=== PATIENT | male | born 1955 | race Caucasian/White ===

== ENCOUNTER 2023-07-27 09:15 | Outpatient (RCR) | payer MEDICARE, OTHER, SELFPAY | END 2023-11-24 23:59 | disposition home or self-care (01) | PROVIDERS: PCP Family Medicine; Visit Provider Family Medicine | DX: M26.623 Arthralgia of bilateral temporomandibular joint (principal); Z51.89 Encounter for other specified aftercare | CPT/HCPCS: 97110; 97140; 97161; 97535 ==

== ENCOUNTER 2024-08-12 11:46 | Outpatient (CLI) | payer MEDICARE, BC, SELFPAY | END 2024-08-12 11:47 | disposition home or self-care (01) | PROVIDERS: PCP Family Medicine; Visit Provider Nurse Practitioner Family | DX: M25.532 Pain in left wrist (principal) | CPT/HCPCS: 84550; 85651; 86140 ==

== ENCOUNTER 2024-12-23 12:23 | Outpatient (CLI) | payer MEDICARE, BC, SELFPAY | END 2024-12-23 12:24 | disposition home or self-care (01) | LOC: NFLDUCREF 12:24 | PROVIDERS: PCP Family Medicine; Visit Provider Physician Assistant | DX: R35.0 Frequency of micturition (principal); R30.0 Dysuria; R50.9 Fever, unspecified | CPT/HCPCS: 87086 ==

== ENCOUNTER 2025-02-20 05:26 | Emergency (ER) | payer MEDICARE, BC, SELFPAY ==
[2025-02-20] VITALS (7 sets, daily range): BP systolic 158–178; BP diastolic 87–101; PULSE 60–63; RESP 16–18; TEMP 36.1; O2SAT 94–97; BMI 21.7
--- OUTSIDE RECORDS SUMMARY | 2025-02-20 05:28 | XMS_ITS | Data Portability ---
Author Organization [facility], _Jette Address [address] [place] [address] Care Team Providers Care Hand Washer Name Role Phone BELKYS ORTIZ Primary Care Provider Assessment No assessment recorded. Plan of Treatment Reminders Order Date Submit Date Provider Last Modified By Organization Details Last Modified Time Details Appointments None recorded. Lab urinalysis , dipstick 2022 Roxane cynthiachandler [facility], [address], [address], [place], [address], 15:18:01 Referral None recorded. Procedures None recorded. Surgeries None recorded. Imaging None recorded. Medication Orders None recorded. Patient TargetsNo targets recorded. Patient InstructionsNo instructions recorded. Reason for Referral None Reported. Results Created Date Observation Date Name Description Value Unit Range Abnormal Flag Note LastModifiedBy Organization Detail LastModifiedTime 10/14/1910/14/2022 urina lysis , dipst ick Color-Status Yellow Not Available [facility] [address], [place], [address], 10/14/2022 15:13:37 10/14/1910/14/2022 urina lysis , dipst ick Clarity-Stat us Clear Not Available [facility] [address], [place], [address], 10/14/2022 15:13:37 10/14/19 23 10/14/2022 urina lysis , dipst ick pH-Status 5.5 Not Available [facility] [address], [place], [address], 10/14/2022 15:13:37 Result Notes None recorded. Problems Name Problem SNOMED Code Status Onset Date Resolution Date Notes Provider Name and Address Organization Details Recorded Time Overactive urinary bladder 621494685 Active 2022 Allen Ny MD [address] [place] [address],[address], [phone], [facility] 3 17:35:11 Primary erectile dysfunction 736262939 Active 2022 Allen Ny MD [address] [place] [address],[facility] [address], [place], [address], [facility] 3 17:35:53 Problem Notes None recorded. Procedures Surgical History Date Name Laterality Status Provider Name and Address Organization Details Recorded Time 3 Bladder Scan completed [facility] 10/14/2022 15:18:38 2 Colonoscopy completed [facility] 10/14/2022 15:13:04 Imaging Results None recorded. Procedure Notes None recorded. Medical Equipment None Reported. Allergies No known drug allergies Medications Name Sig Start Date Stop Date Status Note LastModified by Organization Details LastModified Time atorvastati n 40 mg tablet TAKE 1 TABLET BY MOUTH AT BEDTIME active Not Available Not Available No t Available clonazepam 0.5 mg tablet TAKE 1 TABLET (0.5 MG) BY MOUTH ONCE DAILY IF NEEDED FOR ANXIETY.. [facility] 10/14 completed Not Available Not Available Not Available triamcinolo ne acetonide 0.1 % topical cream APPLY TO FLAKY AREAS ON FACE & NECK TWICE DAILY UP TO 2 WKS AT A TIME. REPEAT NEEDED FOR FLARES. 10/14 completed Not Available Not Available Not Available simvastatin 40 mg tablet TAKE 1 TABLET (40 MG) BY MOUTH ONCE DAILY WITH EVENING MEAL. 10/14 completed Not Available Not Available Not Available lisinopril 10 mg tablet TAKE 1 TABLET BY MOUTH EVERY DAY active Not Available Not Available No t Available mupirocin 2 % topical ointment APPLY TO AFFECTED AREA 2-3X DAILY 10/14 completed Not Available Not Available Not Available paroxetine 40 mg tablet TAKE 1.5 TABLETS (60 MG) BY MOUTH AT BEDTIME. 2022 active Not Available Not Available Not Avai lable tadalafil 20 mg tablet TAKE 1/2 TABLET BY MOUTH ONCE DAILY IF NEEDED FOR ED. active Not Available Not Available No t Available aspirin active Not Available Not Avail able Not Available GaviLyte-G 236 gram-22.74 gram-6.74 gram-5.86 gram oral solution DRINK 3 LITERS THE DAY BEFORE THE PROCEDURE AND 1 LITER 6 HOURS PRIOR TO PROCEDURE . 10/14 completed Not Available Not Available Not Available Vitals Date Recorded Body height Body mass index (BMI) Body weight Provider Name and Address Organization Details Last Updated DateTime 10/14/2022 193.04 cm 20.1 kg/m2 93427.74 g [facility] 10/14/2022 15:11:03 Social History Question Answer Notes LastModified by Wikid[employer] Details LastModified Time Tobacco Smoking Status [facility]14[facility]22 15:12:51 What Was The Date Of Your Most Recent Tobacco Screening? 10/14/2022 Information not available 10/14/2022 Has Tobacco Cessation Counseling Been Provided? Yes Information not available 10/14/2022 On What Date Was Tobacco Cessation Counseling Provided? 10/14/2022 Information not available 10/14/2022 Sex: Unknown Functional Status Question Answer Note LastModified by [employer] Masher Details LastModified Time Do you or have you ever used any other forms of tobacco or nicotine? Yes Information not available 10/14/2022 Do you or have you ever used smokeless tobacco? Currently chews tobacco Information not available 10/14/2022 Do you or have you ever used e-cigarettes or vape? Never used electronic cigarettes Information not available 10/14/2022 Mental Status None recorded. Family History Relationship Description Onset Age of this Age Resolved Age Notes LastModified by Organization Details LastModified Time Father Family history of cancer of colon kneubert Not available 2022 15:11:36 Maternal Uncle Family history of malignant neoplasm of prostate kneubert Not available 2022 15:11:50 Maternal Uncle Malignant melanoma kneubert Not available 2022 15:12:17 Unspecified Relation Family history of malignant neoplasm of prostate cousin on mother 's side kneubert Not available 10/14/2022 15:12:05 Sister Malignant melanoma kneubert Not available 2022 15:12:17 Medical History Condition Response Sexually Transmitted Infection N Diabetes Y Other N Bleeding Disorder N High Blood Pressure N Kidney Stones N High Cholesterol Y GERD/Acid Reflux N Heart Disease N Cancer Y Lung Disease N Depression N Immunizations Vaccine Type Date Status Note Provider Nam e and Address Organization Details Recorded Time Influenza, high-dose, quadrivalent, PF 05/17/2020 completed Nohemy chapin [facility] 07/02/2023 09:50:10 Influenza, high-dose, quadrivalent, PF 08/05/2021 do chapin [facility] 07/02/2023 09:50:10 COVID-19, mRNA, LNP-S, PF, 100 mcg/0.5mL dose or 50 mcg/0.25mL dose [facility]25[facility]2020 [facility]/02/2023 09:50:10 COVID-19, mRNA, LNP-S, PF, 100 mcg/0.5mL dose or 50 mcg/0.25mL dose 11/22/2020 do chapin [facility] 07/02/2023 09:50:10 COVID-19, mRNA, LNP-S, PF, 100 mcg/0.5mL dose or 50 mcg/0.25mL dose 03/11/2022 do chapin [facility] 07/02/2023 09:50:10 COVID-19, mRNA, LNP-S, PF, 100 mcg/0.5mL dose or 50 mcg/0.25mL dose 08/05/2021 do chapin [facility] 07/02/2023 09:50:10 Past Encounters Encounter ID Performer Location Encounter Start Date Encounter Closed Date Diagnosis/Indication Diagnosis SNOMED-CT Code Diagnosis ICD10 Code Diagnosis Note [id number] Allen Ny MD [facility] [address] [place] [address] 10/14/2022 14:48:41 10/16/2022 16:03:26 Incontinence 44870184 R32 Overactive urinary bladder 093725550 N32.81 - Overactive bladder with urge incontinen ce, suspect due to heavy caffeine intake-Adv ised that he significan tly reduce his caffeine intake. We could try medication s for overactive bladder if he does not see improvemen t-Screenin g PSA sent today. Primary er ectile dysfunction 343534402 N52.9 - Continue tadalafil 10 to 20 mg as directed Health Concerns Section Related Observation LastModified by Organization Detai ls LastModified Time None Recorded Concern Status LastModified by Organization Details LastModified Time None Recorded Advance Directives Directive None Recorded Payers Insurance Date Sequence Insurance Name Policy Number Policy Oseguera Covered Member ID Oseguera Member ID Guarantor Name 10/14/2022 1 [place] [employer] Beto Walsh [id number] Beto Walsh 10/14/2022 2 [facility] (MEDICARE SUPPLEMENT) Beto Walsh [id number] Beto Walsh Notes Date Note Type Note Provider Name and Address Organization Details Recorded Time 10/14/2022 text/html New patient referred for urinary concerns and erectile dysfunction. I reviewed the most recent clinic notes from Dr. Mcneal dated 07/29/2022. He reports chronic history of urinary urgency and frequency with 1 pad per day urge incontinence. Symptoms are worse with drinking alcohol. He reports heavy caffeine intake with 3 cups of coffee in the morning and 3 to 4 cans of Pepsi during the day. He saw a urologist in [place] about 4 years ago who started Flomax. The medication has caused dizziness and he has not seen significant symptom improvement. He also has chronic erectile dysfunction and has used tadalafil 10 to 20 mg with fairly good results. Most recent PSA was 2.87 at [facility] on 08/07/2020. Urinalysis today is negative. Postvoid residual 40 mL. AUA symptom score 16, bother 6. Allen Ny MD [address] [facility] [address], [place], [address], [facility] 10/14/2022 17:37:13
--- OUTSIDE RECORDS SUMMARY | 2025-02-20 05:29 | XMS_ITS | Clinical Summary ---
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 4 Active atorvastatin (LIPITOR) 40 mg tabletIndications: Other hyperlipidemia Take 1 Tablet (40 mg) by mouth at bedtime. 90 Tablet 3 4 Active tadalafiL (CIALIS;ADCIRCA) 20 mg tabletIndications: Other male erectile dysfunction Take 1 Tablet (20 mg) by mouth once daily if needed for Erectile Dysfunction. Take 30 minutes before sexual activity. 6 Tablet 8 4 Active lisinopriL (PRINIVIL; ZESTRIL) 20 mg tabletIndications: Essential hypertension Take 1 Tablet (20 mg) by mouth once daily. 90 Tablet 3 5 Active PARoxetine 30 mg tabletIndications: BALBIR (generalized anxiety disorder) Take 1 Tablet (30 mg) by mouth once daily. 90 Tablet 1 5 Active clonazePAM 0.5 mg tabletIndications: BALBIR (generalized anxiety disorder) Take 1 Tablet (0.5 mg) by mouth once daily if needed for Anxiety. 15 Tablet 5 Active clonazePAM (KLONOPIN) 0.5 mg tabletIndications: BALBIR (generalized anxiety disorder) Take 1 Tablet (0.5 mg) by mouth once daily if needed for Anxiety. 15 Tablet 5 025 Discontin ued(Reord er (E-cancel not sent)) PARoxetine 30 mg tabletIndications: BALBIR (generalized anxiety disorder) TAKE 1 TABLET BY MOUTH ONCE DAILY. 90 Tablet 5 025 Discontin ued(Reord er (E-cancel not sent)) busPIRone 15 mg tabletIndications: BALBIR (generalized anxiety disorder) TAKE 1 TABLET (15 MG) BY MOUTH TWO TIMES DAILY. 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 09/13/2020 Other male erectile dysfunction 09/13/2020 BPH with urinary obstruction 09/13/2020 Anxiety 09/13/2020 Encounters Date Type Department Care Team Description 02/13/2025 1:55 PM CDT Office Visit [facility] [address] [place] [address] Nam Mcneal MD Blood Pressure (follow up on blood pressure) 02/13/2025 Travel 01/30/2025 11:30 AM CDT Office Visit [facility] [address] [place] [address] Amarilis Shah NP Medication Management (Things are okay) 01/30/2025 Travel 01/25/2025 9:55 AM CDT Office Visit [facility] [address] [place] [address] Mike Lewis MD Shortness Of Breath; Dizziness (Off and on x 1 year/Has noticed mid back pain when he gets short of breath and dizzy/Increased gassiness, bloating ) 01/25/2025 Travel 01/24/2025 Nurse Triage [facility] [address] [place] [address] Nam Mcneal MD Shortness Of Breath 12/30/[address] [address] Amarilis Shah NP Refill Request (Buspirone) 12/12/2024 1:30 PM CDT Office [place] [address] [place] [address] Nam Mcneal MD Medication Management (Concerns with side effects from chlorthalidone) 12/12/2024 Travel 11/30/[address] [address] Amarilis Shah NP Refill Request (Paroxetine) 11/28/2024 1:55 PM CDT Office Visit [address] [address] Nam Mcneal MD Follow Up (Discuss blood pressures/The home BP readings have been in the 110-160's / 70-100's range./) 11/28/2024 Travel 11/24/2024 10:15 AM CDT Orders Only [address] [place] [address] Lab, [facility] 11/24/2024 Travel from Last 3 Months Immunizations Immunization Administration Dates Next Due COVID-19 VACCINE SPIKEVAX (M ODERNA 50MCG/0.5ML) 12YO+ PFS 06/11/2023 COVID-19 vaccine (Moderna 10 0mcg/0.5mL) PF, MDV 03/11/2022,11/22/2020,10/25/2020 Influenza Virus, Unspecified 06/27/2014,09/02/19 12,12/26/2008 Influenza, High-dose Quadriv alent Inactivated 08/05/2021,05/17/2020 Influenza, IIV4 08/09/2018 Influenza, Inactivated AIIV4 (Age 65+ Years) Preserv Free 06/11/2023 Influenza, Inactivated IIV3 (Age 65+ Years) Preserv Free 06/27/2024 Pneumococcal Conj 20-valent (Prevnar 20) 023 Pneumococcal Poly,23-Valent (Pneumovax) 08/09/20 18 Td, Preservative Free (age >= 7 Years) 0 Tdap 08/09/2020,03/25/2010,12/26/2008 Tuberculin (PPD) 04/19/2012 Zoster (Shingrix-RZV, recombinant) 08/09/2020, Zoster (Zostavax-ZVL, live) 10/21/2016 Family History Medical History Relation Name Comments Diabetes type II Brother Mike Obesity Brother Mike Other Brother Mike He of seps is and respiratory failure at 67 Schizophrenia Brother Mike Possibly or Sc hizoaffective disorder Cancer-colon Father of this at 72 Diabetes type II Father Cancer-ovarian Mother of this at 61 Diabetes type II Sister Nohemy Obesity Sister Nohemy Relation Name Status Comments Brother Mike Father Mother Sister Nohemy Alive Social History Tobacco Use Types Packs/Day Years Used Date Smoking Tobacco: Former Cigars 0 09/13/1972 - 09/13/1995 Smokeless Tobacco: Current Chew Tobacco Cessation:Ready to Q uit: Not Asked; Counseling Given: Not Answered Comments:1 cigar a month or less 08/03/23: not smoking cigars Alcohol Use Standard Drinks/Week Comments Yes 1 (1 standard drink = 0.6 oz pur e alcohol) every other week PHQ-2 Answer Date Recorded PHQ-2 TOTAL SCORE 2 01/30/2025 Social Connections Answer Date Recorded Do you often feel lonely or isolated from those around you? 0 01/25/2025 Alcohol Use Answer Date Recorded How often do you have a drink containing alcohol ? 2 10/11/2024 How many drinks containing a lcohol do you have on a typical day when you are drinking? 0 10/11/2024 How often do you have five or more drinks on one occasion? 1 10/11/2024 Financial Resource Strain Answer Date R ecorded Difficulty of Paying Living Expenses 3 01/25/2025 Difficulty of Paying Living Expenses Not on file 01/25/2025 Food Insecurity Answer Date Recorded Do you worry your food will run out before you are able to buy more? 1 01/25/2025 Transportation Needs Answer Date Record ed Does lack of transportation keep you from medica l appointments? 1 01/25/2025 Does lack of transportation keep you from work, meetings or getting things that you need? 1 01/25/2025 Housing Stability Answer Date Recorded What is your housing situation today? 1 01/25/2025 Utilities Answer Date Recorded Do you have trouble paying f or utilities (for example, heat, electricity, water, phone)? 1 01/25/2025 Sex and Gender Information Value Date Recorded Sex Assigned at Male 10/15/2021 9:20 AM DIRECTOR OF PEDIATRIC REHABILITATION Legal Sex Male 3:32 PM DIRECTOR OF PEDIATRIC REHABILITATION Gender Identity Male 10/15/2021 9:20 AM DIRECTOR OF PEDIATRIC REHABILITATION Sexual Orientation Not on file Occupation Industry Job Start Date Job End Date retired Not on file Not on file Not on file Obstetrics History Last Filed Vital Signs Vital Sign Reading Time Taken Comments Blood Pressure 131/74 02/13/2025 2:07 PM CDT Pulse 71 02/13/2025 2:07 PM CDT Temperature 36.1 C (97 F) 02/13/2025 2:07 PM CDT Respiratory Rate 16 07/08/2021 1:55 PM DIRECTOR OF PEDIATRIC REHABILITATION Oxygen Saturation 97% 02/13/2025 2:07 PM CDT Inhaled Oxygen Concentration - - Weight 79.6 kg (175 lb 6.4 oz) 02/13/2025 2:07 P M CDT Height 189.3 cm (6' 2.53) 06/27/2024 10:35 AM C DT Body Mass Index 22.2 06/27/2024 10:35 AM CDT Plan of Treatment Health Maintenance Due Date Last Done Comments Hepatitis C screening for age 18-79 1973 RSV vaccine for adults or (1 - Risk 60-74 years 1-dose series) 2015 COVID-19 vaccine series ( season) 2024 06/11/2023, 03/11/2022, 08/05/2021, Additional history exists BMI (ht and wt on same day) for age 18+ 06/27/2025 06/27/2024, 06/11/2023, 03/09/2023, Additional history exists Medicare Wellness for age 65+ 06/28/2025 06/27/2024, 03/09/2023, 11/26/2021 Depression screening for age 12+ 01/30/2026 01/30/2025, 10/11/2024, 08/31/2024, Additional history exists Colonoscopy through age 75 04/01/202704/01, 04/01/2022, 04/01/2022 Lipids for age 45-75 10/11/2029 10/11/2024, 06/27/2024, 11/23/2022, Additional history exists Tetanus booster 08/09/2030 08/09/2020, 02/28, 12/26/2008, Additional history exists Tdap Completed 08/09/2020, 02/28, 12/26/2008 Zoster (shingles) series for age 50+ Completed 08/09/2020, 01/09/2020, 10/21/2016 AAA screening age 65-74 Completed 12/08/2021 Pneumococcal series for age 50+ Completed 03/09/2023, 08/09/2018 Influenza Vaccine Completed 06/27/2024, , 08/09/2018, Additional history exists Hepatitis B series for 19+ Aged Out N o longer eligible based on patient's age to complete this topic Procedures Procedure Name Priority Date/Time Associated Diagnosis Comments CBC WITH AUTO DIFFERENTIAL Routine 01/25/2025 11:21 AM CDT HEBERT (dyspnea on exertion) COMP METABOLIC PANEL Routine 01/25/2025 11:21 AM CDT Essential hypertension HEBERT (dyspnea on exertion) TSH WITH REFLEX Routine 01/25/2025 11:21 AM CDT Dizzy HEBERT (dyspnea on exertion) BASIC METABOLIC PANEL Routine 11/24/2024 10:17 AM CDT Essential hypertension LIPID PANEL W REFLEX MEASURED LDL Routine 10/11/2024 10:22 AM DIRECTOR OF PEDIATRIC REHABILITATION Other hyperlipidemia COLONOSCOPY SCREENING Routine 04/01/2022 10:32 AM CDT History of colon polyps US AORTA Routine 12/08/2021 8:26 AM CDT Screening for AAA (abdominal aortic aneurysm) from Last 3 Months or Most Recently Relevant to Health Maintenance Results * TSH WITH REFLEX (01/25/2025 11:21 AM CDT) TSH W/REFLEX TO FT4 2.35 0.40 - 4.50 mIU/L [facility] Blood BLOOD SPECIMEN / Unknown 01/25/2025 11:21 AM CDT 01/25/2025 11:21 AM CDT Narrative [facility] - 01/26/2025 4:05 AM CDT FASTING:NO FASTING: NO Mike Lewis MD CHEMISTRY Final Res ult [facility] [address] [place] [address], [facility] [address] [place] [address] * CBC AND DIFFERENTIAL (01/25/2025 11:21 AM CDT) WHITE BLOOD CELL COUNT 5.6 3.8 - 10.8 Thousand/u L [facility] RED BLOOD CELL COUNT 5.43 4.20 - 5.80 Million/uL [facility] HEMOGLOBIN 16.4 13.2 - 17.1 g/dL [facility] HEMATOCRIT 49.3 38.5 - 50.0 % [facility] MCV 90.8 80.0 - 100.0 fL [facility] MCH 30.2 27.0 - 33.0 pg [facility] MCHC 33.3 32.0 - 36.0 g/dL [facility] Comment: For adults, a slight decrease in the calculated MCHC value (in the range of 30 to 32 g/dL) is most likely not clinically significant; however, it should be interpreted with caution in correlation with other red cell parameters and the patient's clinical condition. RDW 13.0 11.0 - 15.0 % [facility] PLATELET COUNT 252 140 - 400 Thousand/u L [facility] MPV 12.0 7.5 - 12.5 fL [facility] ABSOLUTE NEUTROPHILS 3,662 1,500 - 7,800 cells/uL [facility] ABSOLUTE LYMPHOCYTES 1,322 850 - 3,900 cells/uL [facility] ABSOLUTE MONOCYTES 526 200 - 950 cells/uL [facility] ABSOLUTE EOSINOPHILS 39 15 - 500 cells/uL [facility] ABSOLUTE BASOPHILS 50 0 - 200 cells/uL [facility] NEUTROPHILS 65.4 % [facility] LYMPHOCYTES 23.6 % [facility] MONOCYTES 9.4 % [facility] EOSINOPHILS 0.7 % [facility] BASOPHILS 0.9 % [facility] Blood BLOOD SPECIMEN / Unknown 01/25/2025 11:21 AM CDT 01/25/2025 11:21 AM CDT Narrative [facility] - 01/26/2025 3:45 AM CDT FASTING:NO FASTING: NO Mike Lewis MD HEMATOLOGY Final Res ult [facility] [address] [place] [address], [facility] [address] [place] [address] * COMP METABOLIC PANEL (01/25/2025 11:21 AM CDT) [facility] GLUCOSE 85 65 - 99 mg/dL [facility] Comment: Fasting reference interval UREA NITROGEN (BUN) 19 7 - 25 mg/dL [facility] CREATININE 1.07 0.70 - 1.35 mg/dL [facility] EGFR 75 > OR = 60 mL/min/1. 73m2 [facility] BUN/CREATININE RATIO SEE NOTE: 6 - 22 (calc) [facility] Comment: Not Reported: BUN and Creatinine are within reference range. SODIUM 141 135 - 146 mmol/L [facility] POTASSIUM 4.5 3.5 - 5.3 mmol/L [facility] CHLORIDE 105 98 - 110 mmol/L [facility] CARBON DIOXIDE 29 20 - 32 mmol/L [facility] CALCIUM 9.7 8.6 - 10.3 mg/dL [facility] PROTEIN, TOTAL 7.1 6.1 - 8.1 g/dL [facility] ALBUMIN 4.4 3.6 - 5.1 g/dL [facility] GLOBULIN 2.7 1.9 - 3.7 g/dL (calc) [facility] ALBUMIN/GLOBULIN RATIO 1.6 1.0 - 2.5 (calc) [facility] BILIRUBIN, TOTAL 0.8 0.2 - 1.2 mg/dL [facility] ALKALINE PHOSPHATASE 125 35 - 144 U/L [facility] AST 23 10 - 35 U/L [facility] ALT 26 9 - 46 U/L [facility] Blood BLOOD SPECIMEN / Unknown 01/25/2025 11:21 AM CDT 01/25/2025 11:21 AM CDT Narrative [facility] - 01/26/2025 4:11 AM CDT FASTING:NO FASTING: NO us Mike Lewis MD CHEMISTRY Final Res ult [facility] [address] [place] [address], [facility] [address] [place] [address] * BASIC METABOLIC PANEL (11/24/2024 10:17 AM CDT) GLUCOSE 81 65 - 99 mg/dL [facility] Comment: Fasting reference interval UREA NITROGEN (BUN) 16 7 - 25 mg/dL [facility] CREATININE 1.22 0.70 - 1.35 mg/dL [facility] EGFR 64 > OR = 60 mL/min/1. 73m2 [facility] BUN/CREATININE RATIO SEE NOTE: 6 - 22 (calc) [facility] Comment: Not Reported: BUN and Creatinine are within reference range. SODIUM 144 135 - 146 mmol/L [facility] POTASSIUM 4.4 3.5 - 5.3 mmol/L [facility] CHLORIDE 106 98 - 110 mmol/L [facility] CARBON DIOXIDE 29 20 - 32 mmol/L [facility] ELECTROLYTE BALANCE 9 7 - 17 mmol/L (calc) [facility] CALCIUM 9.4 8.6 - 10.3 mg/dL [facility] Blood BLOOD SPECIMEN / Unknown 11/24/2024 10:17 AM CDT 11/24/2024 10:17 AM CDT us Nam Mcneal MD CHEMISTRY Final Resu lt [facility] [address] [place] [address], [facility] [address] [place] [address] * LIPID PANEL W REFLEX MEASURED LDL (10/11/2024 10:22 AM DIRECTOR OF PEDIATRIC REHABILITATION) Pathologist [facility] CHOLESTEROL, TOTAL 155 <200 mg/dL [facility] HDL CHOLESTEROL 51 > OR = 40 mg/dL [facility] TRIGLYCERIDES 62 <150 mg/dL [facility] LDL-CHOLESTEROL 90 mg/dL (calc) [facility] Comment: Reference range: <100 Desirable range <100 mg/dL for primary prevention; <70 mg/dL for patients with CHD or diabetic patients with > or = 2 CHD risk factors. LDL-C is now calculated using the Joellen calculation, which is a validated novel method providing better accuracy than the Friedewald equation in the estimation of LDL-C. Shad ROBLES et al. JOSE MIGUEL. 2013;310(19): 3393-2162 (http://education.[employer] Cloud/faq/CLD004) CHOL/HDLC RATIO 3.0 <5.0 (calc) [facility] NON HDL CHOLESTEROL 104 <130 mg/dL (calc) [facility] Comment: For patients with diabetes plus 1 major ASCVD risk factor, treating to a non-HDL-C goal of <100 mg/dL (LDL-C of <70 mg/dL) is considered a therapeutic option. Blood BLOOD SPECIMEN / Unknown 10/11/2024 10:22 AM DIRECTOR OF PEDIATRIC REHABILITATION 10/11/2024 10:22 AM DIRECTOR OF PEDIATRIC REHABILITATION Nam Mcneal MD CHEMISTRY Final Resu lt [facility] [address] [place] [address], [facility] [address] [place] [address] * COLONOSCOPY (04/01/2022 10:24 AM CDT) 04/01/2022 10:2 4 AM CDT Narrative Transcriptions Shad Hall MD - 04/01/2022 11:24 AM CDT Patient Name: Beto Walsh Procedure Date: 04/01/2022 Gender: Male Date of : 1955 Admit Type: Outpatient Procedure: Colonoscopy Proceduralist: Shad Hall MD , Dania Barriga, RN(Nurse) Referring MD: Nam Mcneal Indications/Pre-Op Diagnosis: High risk colon cancer surveillance:Personal history of colonic polyps, Last colonoscopy: July 2018 Medications: Fentanyl 150 micrograms IV, Midazolam 4 mgIV, The level of sedation administered wasmoderate Procedure Description: The patient had risks, benefits and alternatives explained to andgave informed consent. The patient had a stable cardiopulmonary status and judged an adequate candidate for conscious sedation. The colonoscope was passed through the anus and advanced to thececum, identified by appendiceal orifice and ileocecal valve. Thecolonoscopy was performed without difficulty. The patient tolerated the procedure well. The quality of the bowel preparation was good. The ileocecal valve, appendiceal orifice, and rectum were photographed. Complications: No immediate complications. Estimated Blood Loss & Specimen: Estimated blood loss: none. Specimen collected - Yes and sent to Laboratory Findings: The perianal and digital rectal examinations were normal. A 4 mm polyp was found in the transverse colon. The polyp wassessile. The polyp was removed with a cold snare. Resection and retrieval were complete. The exam was otherwise without abnormality. Impressions/Post-Op Diagnosis: - One 4 mm polyp in the transverse colon, removed with a cold snare. Resected and retrieved. - The examination was otherwise normal. Recommendation: - Patient has a contact number available for emergencies. The signsand symptoms of potential delayed complications were discussed with the patient. Return to normal activities tomorrow. Written discharge instructions were provided to the patient. - Resume previous diet. - Continue present medications. - Await pathology results. - Repeat colonoscopy in 5 years for surveillance. Moderate Sedation: Moderate (conscious) sedation was administered by the endoscopy nurse and supervised by the endoscopist. The following parameters were monitored: oxygen saturation, heart rate, respiratory rate, blood pressure, adequacy of pulmonary ventilation and reponse to care. Please refer to the patient's medical record flowsheets and nursing notes for moderate sedation details. Total physician intraservice time was 14 minutes. Shad Hall MD 04/01/2022 11:24:24 AM This report has been signed electronically. Note Initiated On: 04/01/2022 10:24 AM Procedure Code(s): --- Professional --- 35089, Colonoscopy, flexible; with removalof tumor(s), polyp(s), or other lesion(s) bysnare technique Diagnosis Code(s): --- Professional --- Z86.010, Personal history of colonicpolyps D12.3, Benign neoplasm of transverse colon (hepatic flexure or splenic flexure) CPT copyright 2020 [employer]. All rights reserved. The codes documented in this report are preliminary and upon stud sheep farmer reviewmay be revised to meet current compliance requirements. Scope In: 11:04:48 AM Scope Withdrawal Time 0 hours 8 minutes 4 seconds Scope Out: 11:18:41 AM us Shad Hall MD PROCEDURE ORD Final Res ult * US AORTA (12/08/2021 8:26 AM CDT) Anatomical Region Laterality Modality Abdomen, AORTA Ultrasound 12/08/2021 11:3 2 AM CDT Impressions 12/08/2021 11:32 AM CDT No evidence of abdominal aortic aneurysm. Dictated by Larry Majano MD @ Dec 08 2021 11:32AM (Electronically Signed) Narrative 12/08/2021 11:32 AM CDT For Patients: As a result of the 21st Century Cures Act, medical imaging exams and procedure reports are released immediately into your electronic medical record. You may view this report before your referring provider. If you have questions, please contact your health care provider. INDICATION: Screening for AAA (abdominal aortic aneurysm) COMPARISON: none TECHNIQUE: Brennan scale and color Doppler images were acquired of the abdominal aorta and iliac arteries. FINDINGS: Sonographic imaging demonstrates atherosclerotic changes. Proximally, the aorta measures 2.2 x 2.2 cm in diameter, mid 2.2 x 1.9 cm, and distally tapers to a measurement of 1.9 x 2.1 cm. The common iliac arteries are patent and measure 1.1 x 1.6 cm on the right and 1.3 x 1.5 cm in diameter on the left. There are no suspicious periaortic masses. Procedure Note Larry Majano MD - 12/08/2021 For Patients: As a result of the Cures Act, medical imagingexams and procedure reports are released immediately into your electronicmedical record. You may view this report before your referring provider.If you have questions, please contact your health care provider. INDICATION: Screening for AAA (abdominal aortic aneurysm) COMPARISON: none TECHNIQUE: Brennan scale and color Doppler images were acquired of the abdominal aortaand iliac arteries. FINDINGS: Sonographic imaging demonstrates atherosclerotic changes. Proximally, theaorta measures 2.2 x 2.2 cm in diameter, mid 2.2 x 1.9 cm, and distallytapers to a measurement of 1.9 x 2.1 cm. The common iliac arteries arepatent and measure 1.1 x 1.6 cm on the right and 1.3 x 1.5 cm in diameteron the left. There are no suspicious periaortic masses. IMPRESSION: No evidence of abdominal aortic aneurysm. Dictated by Larry Majano MD @ Dec 08 2021 11:32AM (Electronically Signed) us Nam Mcneal MD Final Resu lt from Last 3 Months or Most Recently Relevant to Health Maintenance Insurance MEDICARE PART B HB ONLY [employer] [place] [place] [employer] MR PB ONLY [employer] [place] BLUE HB ONLY MEDICARE PART A HB ONLY Care Teams Client Account Representative Relationship Specialty Start Date End Date Nam Mcneal [place] [address] PCP - General Family Practice 11/15/20
--- OUTSIDE RECORDS SUMMARY | 2025-02-20 05:29 | XMS_ITS | Data Portability ---
Author Organization [facility], _[place] Address [address] [place] [address] Care Team Providers Care Spring Bender Name Role Phone BELKYS ORTIZ Primary Care Provider Assessment No assessment recorded. Plan of Treatment Reminders Order Date Submit Date Provider Last Modified By Organization Details Last Modified Time Details Appointments None recorded. Lab urinalysis , dipstick 2022 Roxane cynthiachandler [facility], [address] [place], [address], [place], [address], 15:18:01 Referral None recorded. Procedures None recorded. Surgeries None recorded. Imaging None recorded. Medication Orders None recorded. Patient TargetsNo targets recorded. Patient InstructionsNo instructions recorded. Reason for Referral None Reported. Results Created Date Observation Date Name Description Value Unit Range Abnormal Flag Note LastModifiedBy Organization Detail LastModifiedTime 10/14/1910/14/2022 urina lysis , dipst ick Color-Status Yellow Not Available [facility] [address] [place] [address], [place], [address], 10/14/2022 15:13:37 10/14/1910/14/2022 urina lysis , dipst ick Clarity-Stat us Clear Not Available [facility] [address] [place] [address], [place], [address], 10/14/2022 15:13:37 10/14/19 23 10/14/2022 urina lysis , dipst ick pH-Status 5.5 Not Available [facility] [address] [place] [address], [place], [address], 10/14/2022 15:13:37 Result Notes None recorded. Problems Name Problem SNOMED Code Status Onset Date Resolution Date Notes Provider Name and Address Organization Details Recorded Time Overactive urinary bladder 660731142 Active 2022 Allen Ny MD [address] [place] [address],[address], [phone], [facility] 3 17:35:11 Primary erectile dysfunction 363883282 Active 2022 Allen Ny MD [address] [place] [address],[facility] [address], [place], [address], [facility] 3 17:35:53 Problem Notes None recorded. Procedures Surgical History Date Name Laterality Status Provider Name and Address Organization Details Recorded Time 3 Bladder Scan completed [facility] 10/14/2022 15:18:38 2 Colonoscopy completed [facility] 10/14/2022 15:13:04 Imaging Results None recorded. Procedure [...] MOUTH ONCE DAILY IF NEEDED FOR ANXIETY.. [facility] 10/14 completed Not Available Not Available [...] Updated DateTime 10/14/2022 193.04 cm 20.1 kg/m2 43817.74 g Ml rL [facility] 10/14/2022 15:11:03 Social History Question Answer Notes LastModified by Document[employer] Details LastModified Time Tobacco Smoking Status [facility] 10/14/2022 15:12:51 What Was The Date Of Your Most Recent Tobacco Screening? 10/14/2022 Information not available 10/14/2022 Has Tobacco Cessation Counseling Been Provided? Yes Information not available 10/14/2022 On What Date Was Tobacco Cessation Counseling Provided? 10/14/2022 Information not available 10/14/2022 Sex: Unknown Functional Status Question Answer Note LastModified by [employer] unlimited Details LastModified Time Do you or have [...] high-dose, quadrivalent, PF 05/17/2020 completed Nohemy chapin [facility] 07/02/2023 09:50:10 Influenza, high-dose, quadrivalent, PF 08/05/2021 do chapin [facility] 07/02/2023 09:50:10 COVID-19, mRNA, LNP-S, PF, 100 mcg/0.5mL dose or 50 mcg/0.25mL dose 10[facility]25/2020 [facility]/02/2023 09:50:10 COVID-19, mRNA, LNP-S, PF, 100 mcg/0.5mL dose or 50 mcg/0.25mL dose 11/22/2020 do chapin [facility] 07/02/2023 09:50:10 COVID-19, mRNA, LNP-S, PF, 100 mcg/0.5mL dose or 50 mcg/0.25mL dose 03/11/2022 do chapin [facility] 07/02/2023 09:50:10 COVID-19, mRNA, LNP-S, PF, 100 mcg/0.5mL dose or 50 mcg/0.25mL dose 08/05/2021 do chapin [facility] 07/02/2023 09:50:10 Past Encounters Encounter ID Performer Location Encounter Start Date Encounter Closed Date Diagnosis/Indication Diagnosis SNOMED-CT Code Diagnosis ICD10 Code Diagnosis Note [id number] Allen Ny MD [facility] [address] [place],[address] [place] [address] 10/14/2022 14:48:41 10/16/2022 16:03:26 Incontinence 82034299 R32 Overactive urinary bladder 050408187 N32.81 - Overactive bladder with urge incontinen ce, suspect due to heavy caffeine intake-Adv ised that he significan tly reduce his caffeine intake. We could try medication s for overactive bladder if he does not see improvemen t-Screenin g PSA sent today. Primary er ectile dysfunction 603787156 N52.9 - Continue tadalafil 10 to 20 mg as directed Health Concerns Section Related Observation LastModified by Organization Detai ls LastModified Time None Recorded Concern Status LastModified by Organization Details LastModified Time None Recorded Advance Directives Directive None Recorded Payers Insurance Date Sequence Insurance Name Policy Number Policy Oseguera Covered Member ID Oseguera Member ID Guarantor Name 10/14/2022 1 [place] [employer] Beto Walsh [id number] Beto Walsh 10/14/2022 2 [facility] (MEDICARE SUPPLEMENT) Beto Walsh [id number] Beto Walsh Notes Date Note Type Note [...] results. Most recent PSA was 2.87 at [facility] on 08/07/2020. Urinalysis today is negative. Postvoid residual 40 mL. AUA symptom score 16, bother 6. Allen Ny MD [address] [address], [place], [address], [facility] 10/14/2022 17:37:13
--- NOTE | 2025-02-20 05:47 | ED.BACK ---
HPI - Back Pain/Injury General Date Seen: 02/20/25 Chief Complaint: Back Injury/Pain Stated Complaint: Having back pain Time Seen by Provider: 02/20/25 05:47 History of Present Illness HPI Narrative: 69-year-old male presenting to the ER today for pain involving his left low back. Past medical history from his [facility] medical record includes coronary disease, hyperlipidemia, anxiety, depression, BPH. He takes aspirin but no other anticoagulants. He does have a long history of low back problems dating back approximately 30 years or so. He has, in the past, suffered sciatica. No previous back surgeries. He has been experiencing spasms of pain affecting the left side of his low back and his left posterior buttock since yesterday morning. No clear trigger for why they are spasming the past couple of days. No recent fall. No known injury. He did mow his lawn on his riding tractor couple of days ago which sometimes causes him to bump and twist but he does not recall any spot particular strenuous activity. No heavy lifting. His pain is in his low back and in the posterior left buttock. It does not radiate down his leg. No associated leg numbness. Urination has been normal. No dysuria, urgency, frequency, or hesitancy. He has not had any bowel incontinence but does note that his bowels have been, ?weird? lately. He means that sometimes they are very small stools and sometimes they are larger. No bloody stool. No diarrhea. Sometimes when the pain is severe it does radiate to his left lower abdomen. He also notes that he had ?a urinary problem? and was seen for a couple of months ago. Per medical record he was seen in the urgent care in November and diagnosed with pyelonephritis he had a white count of 15, normal kidney function, and abnormal urinalysis. He was treated with antibiotics. Although symptoms have since resolved. He has been trying to treat his back spasm with his home meds including using his clonazepam for muscle relaxation but he is just not able to get any rest tonight. He notes this pain seems to be better when he keeps his left hip and knee flexed as if putting his left ankle on his flexed right knee helps the back relax. The pain gets worse when he tries to extend his left hip and knee to a straight/neutral position. Related Data Home Medications ?Medication ?Instructions ?Recorded ?Confirmed aspirin 81 mg tablet,delayed 81 mg PO QDAY 08/12/24 12/23/24 release (Adult Aspirin Regimen) atorvastatin 40 mg tablet 40 mg PO QPM 08/12/24 12/23/24 buspirone 15 mg tablet 15 mg PO BID 08/12/24 12/23/24 clonazepam 0.5 mg tablet 0.5 mg PO DAILY 08/12/24 12/23/24 lisinopril 10 mg tablet 10 mg PO DAILY 08/12/24 12/23/24 paroxetine HCl 30 mg tablet 30 mg PO QPM 08/12/24 12/23/24 tadalafil 20 mg tablet 20 mg PO DAILY PRN intercourse 08/12/24 12/23/24 Allergies Allergy/AdvReac Type Severity Reaction Status Date / Time horse dander Allergy Unknown Verified 12/23/24 11:54 [facility] Social History Do you use any of these nicotine containing products: Smokeless Tobacco How often do you have a drink containing alcohol: 2-3 times a week AUDIT-C Alcohol total score: 3 Non-prescribed substance use: denies use Exam Narrative: Exam Narrative: Constitutional: Appears well-developed and well-nourished. Alert. Conversant. Non toxic. HENT: Head: Atraumatic. Nose: Nose normal. Mouth/Throat: Oral mucosa is clear and moist. no trismus. Pharynx normal. Eyes: Conjunctivae normal. EOM normal. Pupils equal, round, and reactive to light. No scleral icterus. Neck: Normal range of motion. Neck supple. No tracheal deviation present. Cardiovascular: Normal rate, regular rhythm. No gallop. No friction rub. No murmur heard. Symmetric PT artery pulses . Normal cap refill in both feet. Pulmonary/Chest: Effort normal. No stridor. No respiratory distress. No wheezes. No rales. No rhonchi . No tenderness. Abdominal: Soft. Bowel sounds normal. No distension. No mass. No tenderness. No rebound. No guarding. Musculoskeletal: Pelvis is stable. Note bony tenderness over the trochanter or pelvic crest. He is not able to roll over for comprehensive back exam. No bruising or ecchymosis or erythema or abrasion over the posterior hip or lumbar spine. RUE: Normal range of motion. No tenderness. No deformity LUE: Normal range of motion. No tenderness. No deformity RLE: Normal range of motion. No edema. No tenderness. No deformity LLE: He is actively holding his left hip and knee flexed. When he tries to straighten out left hip he grimaces with a spasm of pain that affects his low back. Normal range of motion. No edema. No tenderness. No deformity Neurological: Alert and oriented to person, place, and time. Normal strength. CN II-VII intact. No sensory deficit. GCS eye subscore is 4. GCS verbal subscore is 5. GCS motor subscore is 6. Normal coordination Sensory: Normal light touch sensation bilaterally on the anteromedial thigh (L3), medial malleolus (L4), dorsal first web space (L5), lateral malleolus (S1). Strength: 5/5 strength hip flexors (L3) on the right and left 5/5 strength in the quadriceps (L4) on the right and left 5/5 strength in the tibialis anterior 5/5 strength in the EHL (L5) on the right and left 5/5 strength in the gastrocnemius (S1) on the right and left 5/5 strength in the hamstring on the right and left DTRs: symmetric in the patella (2/4) and in the achilles tendons. Negative straight leg raise bilaterally. Skin: Skin is warm and dry. No rash noted. No pallor. Normal capillary refill. Psychiatric: Normal mood. Normal affect. Const: Vital Signs, click to edit/add: Vital Signs - 24 hr 02/20/25 05:43 02/20/25 07:32 02/20/25 07:33 Temperature 96.9 F L Pulse Rate 62 Pulse Rate [Right Pulse Oximeter] 63 63 Respiratory Rate 18 16 Blood Pressure 158/87 H Blood Pressure [Ri ght Upper Arm] 178/101 H 158/87 H Pulse Oximetry 97 97 97 Oxygen Delivery Me thod Room Air Room Air 02/20/25 07:34 02/20/25 07:45 02/20/25 08:00 Temperature Pulse Rate 63 61 60 Pulse Rate [Right Pulse Oximeter] Respiratory Rate Blood Pressure Blood Pressure [Ri ght Upper Arm] Pulse Oximetry 97 94 96 Oxygen Delivery Me thod 02/20/25 08:02 Temperature Pulse Rate 60 Pulse Rate [Right Pulse Oximeter] Respiratory Rate Blood Pressure 163/99 H Blood Pressure [Ri ght Upper Arm] Pulse Oximetry 96 Oxygen Delivery Me thod Course Course ED Course: Recheck-reviewed the patient's CT images. I do not see any aortic enlargement, kidney stone, diverticulitis, colitis, abscess, pelvic fracture, or obvious retroperitoneal hemorrhage. Awaiting formal radiology read. I recheck the patient. He is more comfortable now on able to lift his legs rest on the bed but still has occasional spasms of pain when he tries to twist or roll over in bed. Reevaluation(s) Reevaluation #1: Recheck-doing somewhat better after 2nd dose of Dilaudid (0.5mg IV x2) Reevaluation #2: Recheck-doing better. Able to get out of bed. Feels as though he can get home with his . Vital Signs Vital signs: Initial Vital Signs Temperature 96.9 F L 02/20/25 05:43 Temperature Source Temporal Artery Scan 02/20/25 05:43 Pulse Rate 63 02/20/25 05:43 Respiratory Rate 18 02/20/25 05:43 Blood Pressure 178/101 H 02/20/25 05:43 Blood Pressure Mean 126 H 02/20/25 05:43 Blood Pressure Position Sitting 02/20/25 05:43 Pulse Oximetry 97 02/20/25 05:43 Oxygen Delivery Method Room Air 02/20/25 05:43 Vital Signs Temperature 96.9 F L 02/20/25 05:43 Pulse Rate 63 02/20/25 05:43 Respiratory Rate 18 02/20/25 05:43 Blood Pressure 178/101 H 02/20/25 05:43 Pulse Oximetry 97 02/20/25 05:43 Oxygen Delivery Method Room Air 02/20/25 05:43 Temperature 96.9 F L 02/20/25 05:43 Pulse Rate 60 02/20/25 08:02 Respiratory Rate 16 02/20/25 07:32 Blood Pressure 163/99 H 02/20/25 08:02 Pulse Oximetry 96 02/20/25 08:02 Oxygen Delivery Method Room Air 02/20/25 07:32 Medications Administered Medications: Generic Name Dose Route Start Last Admin Trade Name Freq PRN Reason Stop Dose Admin Hydromorphone HCl 0.5 mg 02/20/25 06:07 02/20/25 07:25 Hydromorphone 0.5 Mg/0.5 Ml Inj IVP 0.5 mg Q1H PRN Administration Pain Discontinued Medications Generic Name Dose Route Start Last Admin Trade Name Edis PRN Reason Stop Dose Admin Diazepam 5 mg 02/20/25 06:07 02/20/25 06:19 Diazepam 5 Mg Tablet PO 02/20/25 06:08 5 mg ONCE ONE Administration Ketorolac Tromethamine 15 mg 02/20/25 06:07 02/20/25 06:16 Ketorolac 15 Mg/Ml Inj IVP 02/20/25 06:08 15 mg ONCE ONE Administration MDM - Back Pain/Injury MDM Narrative Medical decision making narrative: This patient presented with left-sided low back pain/left hip/buttock. Broad differential considered. The patient did not sustain any trauma, therefore x-rays are not necessary due to the low likelihood of fracture or subluxation. Given his age and history of vascular disease, consider vascular pathology such as abdominal aortic aneurysm . Also consider non musculoskeletal/nonvascular causes of pain such as kidney stone, retroperitoneal hematoma. Patient is worried (without a clear history) that he might have some form of cancer making his back hurt. Given age and differential we did obtain a stone protocol abdomen/pelvis CT which shows no life-threatening pathology. CT scan does show mild lumbar arthritis. No red flag symptoms to suggest MRI is indicated at this point. The patient has not had a fever, saddle/perineal anesthesia, bilateral foot numbness, or bowel or bladder dysfunction. There is no clinical evidence of cauda equina syndrome, discitis, spinal/epidural space hematoma or epidural abscess. The neurological exam is normal and the patient's symptoms seem consistent with a musculoskeletal issues and significant muscle spasm. Pain has improved with interventions in the emergency department. The patient will be discharged with pain medications to use as directed. Ice or heat to the back and stretching exercises. No heavy lifting, bending or twisting. Return if increasing pain, numbness, weakness, or bowel or bladder dysfunction. The patient was advised to schedule follow-up with their primary doctor within 2-3 days to re-assess symptoms. Return precautions reviewed and questions answered. Lab Data Labs: Lab Results 02/20/25 Range/Units 06:07 WBC 7.43 (4.50-11.00) K/uL RBC 5.24 (4.30-5.90) m/uL Hgb 16.0 (13.5-17.5) gm/dL Hct 45.9 (37.0-53.0) % MCV 88 (80-100) fL MCH 31 (26-34) pg MCHC 35 (32-36) gm/dL RDW Coeff of Bruno 13.1 (11.5-15.5) % Plt Count 212 (140-440) K/uL Neut % (Auto) 66.2 (42.0-72.0) % Lymph % (Auto) 21.3 (20-44) % [place] % (Auto) 10.2 (0.0-11.0) % Eos % (Auto) 0.4 (0.0-7.0) % Baso % (Auto) 0.8 (0.0-3.0) % Neut # (Auto) 4.92 (1.7-7.0) K/uL Lymph # (Auto) 1.58 (0.90-2.90) K/uL [place] # (Auto) 0.80 (0.00-0.90) K/UL Eos # (Auto) 0.03 (0.00-0.50) K/uL Baso # (Auto) 0.06 (0.00-0.30) K/uL Abs Immat Gran (auto) 0.08 (0.00-0.30) K/uL Imm/Tot Granulo (auto) 1.1 % Sodium 136 (135-149) mmol/L Potassium 3.4 L (3.6-5.1) mmol/L Chloride 103 (96-114) mmol/L Carbon Dioxide 27 (20-32) mmol/L Anion Gap 6 L (7-15) mEq/L BUN 16 (7-30) mg/dL Creatinine 1.0 (0.5-1.5) mg/dL Estimated Creat Clear 79.62 Estimated GFR 81 ml/min Glucose 100 (60-115) mg/dL Calcium 9.1 (8.4-10.6) mg/dL Imaging Data CT scan - abdomen: Attestation: I have reviewed the pertinent imaging results. Radiologist's impression: FINDINGS: Lower chest: Unremarkable. Liver: Unremarkable. Gallbladder and bile ducts: No stones or inflammation. No biliary dilatation. Pancreas: Unremarkable. Spleen: Unremarkable. Adrenal glands: Normal in size. No nodules. Kidneys: No hydronephrosis or nephrolithiasis. GI tract: No obstruction. No evidence of significant bowel edema. Appendix is not visualized. Vasculature: Abdominal aorta is normal in caliber. Mild aortoiliac atherosclerosis. Lymph nodes: No lymphadenopathy. Peritoneum/Abdominal Wall: Mild atrophy of lower lumbar paraspinal muscles. Pelvis: Unremarkable. Bones: Hemangioma in L2. Mild degenerative disease of the spine with mild central stenosis at L3-L4 and L4-L5. Mild degenerative disease of the hips. Scattered sclerotic lesions in the pelvis are indeterminate, but likely represent bone islands. 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 Mild atrophy of lower lumbar spinal muscles. Discharge Plan Discharge Clinical Impression: Low back pain Patient Disposition: Home, Self-Care Condition: Stable Instructions: Acute Low Back Pain (ED) Additional Instructions: As we discussed, so far your workup looks reassuring. However if you have any concerns or worsening symptoms (for instance new pain radiating down your leg, dysfunction of your bladder or bowels, fever) please come back to the ER right away. Please recheck with your regular doctor within the next 3-4 days. For the next few days light activity is good. Avoid strenuous physical activity or heavy lifting (more than 5-10 lb) for activities that require repetitive bending, twisting, lifting objects over your head. You can use your regular medications as needed for pain such as Tylenol or ibuprofen. Use the prescription pain killer and prescription pain medication if needed for back pain uncontrolled by the other medications. Be careful because prescription pain killer( such as Percocet) and muscle relaxer (such as cyclobenzaprine) can cause side effects. They can cause dizziness, drowsiness, constipation, and can sometimes be addictive. You should not operate machinery for 6 hours after taking these meds. Prescriptions: No Action atorvastatin 40 mg tablet 40 mg PO QPM lisinopril 10 mg tablet 10 mg PO DAILY tadalafil 20 mg tablet 20 mg PO DAILY PRN (Reason: intercourse) clonazepam 0.5 mg tablet 0.5 mg PO DAILY paroxetine HCl 30 mg tablet 30 mg PO QPM buspirone 15 mg tablet 15 mg PO BID aspirin [Adult Aspirin Regimen] 81 mg tablet,delayed release (DR/EC) 81 mg PO QDAY Follow Up/Referrals: Nam Mcneal MD [Primary Care Provider, Family Practice] Stand Alone Forms: Work/School Release, MyHealth Info Instructions
--- NOTE | 2025-02-20 06:07 | CRLHL7_ITS ---
For Patients: As a result of the Century Cures Act, medical imaging exams and procedure reports are released immediately into your electronic medical record. You may view this report before your referring provider. If you have questions, please contact your health care provider. INDICATION: Lower back and hip spasm TECHNIQUE: CT abdomen and pelvis without contrast. COMPARISON: None. FINDINGS: Lower chest: Unremarkable. Liver: Unremarkable. Gallbladder and bile ducts: No stones or inflammation. No biliary dilatation. Pancreas: Unremarkable. Spleen: Unremarkable. Adrenal glands: Normal in size. No nodules. Kidneys: No hydronephrosis or nephrolithiasis. GI tract: No obstruction. No evidence of significant bowel edema. Appendix is not visualized. Vasculature: Abdominal aorta is normal in caliber. Mild aortoiliac atherosclerosis. Lymph nodes: No lymphadenopathy. Peritoneum/Abdominal Wall: Mild atrophy of lower lumbar paraspinal muscles. Pelvis: Unremarkable. Bones: Hemangioma in L2. Mild degenerative disease of the spine with mild central stenosis at L3-L4 and L4-L5. Mild degenerative disease of the hips. Scattered sclerotic lesions in the pelvis are indeterminate, but likely represent bone islands. 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 Mild atrophy of lower lumbar spinal muscles. Please note that all CT scans at this facility use dose modulation, iterative reconstruction, and/or weight-based dosing when appropriate to reduce radiation dose to as low as reasonably achievable. Dictated by Josselin Oviedo MD @ 02/20/2025 7:02:20 AM (Electronically Signed)
[2025-02-20] MEDS: KETOROLAC 15 MG/ML inj IVP (06:16)
[2025-02-20] MEDS: HYDROmorphone 0.5 mg/0.5 ml inj IVP ×2 (06:17→07:25)
[2025-02-20 06:18] LABS: Basophils Absolute Auto 0.06 K/uL (0.00-0.30); Basophils Percent Auto 0.8 % (0.0-3.0); Eosinophils Absolute Auto 0.03 K/uL (0.00-0.50); Eosinophils Percent Auto 0.4 % (0.0-7.0); Hematocrit 45.9 % (37.0-53.0); Immature Granulocytes Abs Auto 0.08 K/uL (0.00-0.30); Immature Granulocytes Pct Auto 1.1 %; Lymphocytes Absolute Auto 1.58 K/uL (0.90-2.90); Lymphocytes Percent Auto 21.3 % (20-44); Mean Corpuscular HGB Conc 35 gm/dL (32-36); Mean Corpuscular Hemoglobin 31 pg (26-34); Mean Corpuscular Volume 88 fL (80-100); Monocytes Percent Auto 10.2 % (0.0-11.0); Neutrophils Absolute Auto 4.92 K/uL (1.7-7.0); Neutrophils Percent Auto 66.2 % (42.0-72.0); Platelet Count* 212 K/uL (140-440); RDW Coefficient of Variation % 13.1 % (11.5-15.5); Red Blood Count 5.24 m/uL (4.30-5.90); White Blood Count* 7.43 K/uL (4.50-11.00)
[2025-02-20 06:19] LABS: Slide Review Reflex No
[2025-02-20] MEDS: diazePAM 5 MG TABLET PO (06:19)
[2025-02-20 06:30] LABS: Chloride* 103 mmol/L (96-114); Potassium* 3.4 mmol/L (3.6-5.1); Sodium* 136 mmol/L (135-149)
[2025-02-20 06:33] LABS: Blood Urea Nitrogen* 16 mg/dL (7-30); Est. Creatinine Clearance* 79.62; Estimated Glomerular Filt Rate 81 ml/min
[2025-02-20 06:34] LABS: Anion Gap 6 mEq/L (7-15); Calcium* 9.1 mg/dL (8.4-10.6); Carbon Dioxide* 27 mmol/L (20-32); Glucose* 100 mg/dL (60-115)
== END 2025-02-20 08:25 | disposition home or self-care (01) ==
PROVIDERS: Emergency Provider Emergency Medicine; PCP Family Medicine
DX: M54.50 Low back pain, unspecified (principal)
CPT/HCPCS: 36415; 74176; 80048; 81001; 85025; 96374; 96375; 99283; 99284; J1171; J1885